=== PATIENT | male | born 1950 | race Caucasian/White ===

== ENCOUNTER → 2021-11-11 | Outpatient (CLI) | payer MEDICARE ==
[2021-11-11 12:55] LABS: CREATININE 1.1 mg/dL (0.5-1.5); POTASSIUM 4.5 mmol/L (3.5-5.1)
== END | disposition home or self-care (01) ==
LOC: LAB 10:37
PROVIDERS: ATTEND Internal Medicine Cardiovascular Disease
DX: E78.5 Hyperlipidemia, unspecified (principal)
CPT/HCPCS: 36415; 80048; 83880

== ENCOUNTER → 2022-06-20 | Outpatient (CLI) | payer MEDICARE | END | disposition home or self-care (01) | LOC: SHCH 13:50 | PROVIDERS: ATTEND Internal Medicine Cardiovascular Disease | DX: I87.2 Venous insufficiency (chronic) (peripheral) (principal); Z98.890 Other specified postprocedural states | CPT/HCPCS: 93971 ==

== ENCOUNTER → 2022-08-01 | Outpatient (CLI) | payer MEDICARE | END | disposition home or self-care (01) | LOC: SHCH 12:55 | PROVIDERS: ATTEND Internal Medicine Cardiovascular Disease | DX: I87.2 Venous insufficiency (chronic) (peripheral) (principal); Z98.890 Other specified postprocedural states | CPT/HCPCS: 93971 ==

== ENCOUNTER → 2022-08-08 | Outpatient (CLI) | payer MEDICARE | END | disposition home or self-care (01) | LOC: SHCH 08:15 | PROVIDERS: ATTEND Internal Medicine Cardiovascular Disease | DX: I87.2 Venous insufficiency (chronic) (peripheral) (principal); Z98.890 Other specified postprocedural states | CPT/HCPCS: 93971 ==

== ENCOUNTER → 2022-09-21 | Outpatient (CLI) | payer MEDICARE ==
[2022-09-21 12:35] LABS: BASOPHILS % (AUTO) 0.9 % (0.0-5.0); EOSINOPHILS % (AUTO) 2.2 % (0.0-8.0); HEMATOCRIT 32.2 % (42-54); LYMPHOCYTES % (AUTO) 21.8 % (21.0-51.0); MEAN CORPUSCULAR HEMOGLOBIN 20.6 pg (27.0-33.0); MEAN CORPUSCULAR HGB CONC 27.6 g/dL (32.0-36.0); MEAN CORPUSCULAR VOLUME 74.7 fL (79-99); MONOCYTES % (AUTO) 9.8 % (3.0-13.0); NEUTROPHILS % (AUTO) 64.3 % (40.0-77.0); PLATELET COUNT (AUTO) 297 K/uL (130-400); RED BLOOD CELL COUNT(AUTO) 4.31 MIL/uL (4.50-6.20); RED CELL DISTRIBUTION WIDTH 18.5 % (11.0-15.5); WHITE BLOOD COUNT (AUTO) 7.8 K/uL (4.8-10.8)
[2022-09-21 12:50] LABS: INR 0.94 (0.85-1.15); PROTHROMBIN TIME 10.3 SEC (9.6-11.6)
[2022-09-21 12:52] LABS: PARTIAL THROMBOPLASTIN TIME 24.3 SEC (26.3-35.5)
[2022-09-21 13:36] LABS: CREATININE 1.2 mg/dL (0.5-1.5); POTASSIUM 4.4 mmol/L (3.5-5.1)
== END | disposition home or self-care (01) ==
LOC: LAB 09:36
PROVIDERS: ATTEND Internal Medicine Cardiovascular Disease
DX: I87.1 Compression of vein (principal); Z86.2 Personal history of diseases of the blood and blood-forming organs and certain disorders involving the immune mechanism
CPT/HCPCS: 36415; 80048; 85025; 85610; 85730

== ENCOUNTER → 2022-11-08 | Outpatient (CLI) | payer MEDICARE ==
[~2022-11-08] MED LIST: ALBUHFA IH; ASPI-1197 PO; ATOR10 PO; CARV12.511 PO; CLOP75TA32 PO; FURO40TA5 PO; GABA300S3 PO; LISI1TAB53 PO; MECO10005 PO; METF-444 PO; PANT40TA54 PO; PRED20B PO; VITA1CAP PO
[2022-11-08 16:18] LABS: BASOPHILS % (AUTO) 0.9 % (0.0-5.0); EOSINOPHILS % (AUTO) 2.1 % (0.0-8.0); HEMATOCRIT 36.6 % (42-54); LYMPHOCYTES % (AUTO) 24.2 % (21.0-51.0); MEAN CORPUSCULAR HEMOGLOBIN 23.2 pg (27.0-33.0); MEAN CORPUSCULAR HGB CONC 27.9 g/dL (32.0-36.0); MEAN CORPUSCULAR VOLUME 83.4 fL (79-99); MONOCYTES % (AUTO) 10.6 % (3.0-13.0); NEUTROPHILS % (AUTO) 61.5 % (40.0-77.0); PLATELET COUNT (AUTO) 231 K/uL (130-400); RED BLOOD CELL COUNT(AUTO) 4.39 MIL/uL (4.50-6.20); WHITE BLOOD COUNT (AUTO) 5.7 K/uL (4.8-10.8)
[2022-11-08 16:51] LABS: ALBUMIN 3.6 g/dL (3.5-5.0); CREATININE 1.3 mg/dL (0.5-1.5); POTASSIUM 4.2 mmol/L (3.5-5.1); TOTAL PROTEIN, SERUM 7.2 g/dL (6.0-8.3)
== END | disposition home or self-care (01) ==
LOC: LAB 15:17
PROVIDERS: ATTEND Internal Medicine Cardiovascular Disease
DX: I87.1 Compression of vein (principal)
CPT/HCPCS: 36415; 80053; 83880; 85025

== ENCOUNTER 2023-01-11 10:40 | Inpatient (IN) | payer MEDICARE ==
[~2023-01-11] VITALS: Ht 182.9 cm; Wt 128.5 kg
[2023-01-11 11:34] LABS: EOSINOPHILS % (AUTO) 1.9 % (0.0-8.0); HEMATOCRIT 29.6 % (42-54); MEAN CORPUSCULAR HGB CONC 27.7 g/dL (32.0-36.0); MEAN CORPUSCULAR VOLUME 83.1 fL (79-99); MONOCYTES % (AUTO) 9.7 % (3.0-13.0); NEUTROPHILS % (AUTO) 71.6 % (40.0-77.0); NUCLEATED RED BLOOD CELLS 0.3 % (0.0-0.19); PLATELET COUNT (AUTO) 273 K/uL (130-400); RED BLOOD CELL COUNT(AUTO) 3.56 MIL/uL (4.50-6.20); RED CELL DISTRIBUTION WIDTH 18.4 % (11.0-15.5); WHITE BLOOD COUNT (AUTO) 7.3 K/uL (4.8-10.8)
[2023-01-11 11:43] LABS: CREATININE 1.3 mg/dL (0.5-1.5); POTASSIUM 4.2 mmol/L (3.5-5.1)
[2023-01-11] MEDS ORDERED: METOPROLOL TARTRATE 1 MG/ML 5ML VIAL IV ONE (11:44)
[2023-01-11 11:47] LABS: TOTAL PROTEIN, SERUM 7.2 g/dL (6.0-8.3)
[2023-01-11] MEDS ORDERED: FUROSEMIDE 40MG VIAL IV ONE (14:30)
[2023-01-11] MEDS ORDERED: IPRATROPIUM/ALBUTEROL SULFATE 3 ML SOLUTION IH ONE (14:30)
[2023-01-11] MEDS: MAGNESIUM 2GM PREMIX 50ML 50 ML IV SCH (14:35)
[2023-01-11] MEDS ORDERED: GABA-529 PO (14:53)
[2023-01-11] MEDS ORDERED: OMEP40CA21 PO (14:53)
[2023-01-11] MEDS ORDERED: NAPR-1084 PO (14:53)
[2023-01-11 15:17] LABS: ABG OXYGEN SATURATION 24.9 % (95.0-99.0); BASE EXCESS,VENOUS BLOOD GAS 4.2 (-2.0-3.0); HCO3,VENOUS BLOOD GAS 33.1 (21.0-28.0); PCO2,VENOUS BLOOD GAS 69 (35-48); PH,VENOUS BLOOD GAS 7.297 (7.350-7.450)
[2023-01-11 15:44] LABS: APPEARANCE,URINE CLEAR (CLEAR); BILIRUBIN,URINE NEGATIVE (NEGATIVE); COLOR,URINE YELLOW (YELLOW); GLUCOSE, URINE (UA) NEGATIVE (NEGATIVE); KETONES,URINE NEGATIVE (NEGATIVE); LEUKOCYTE ESTERASE ,URINE 75 Leu/uL (NEGATIVE); NITRATE,URINE 2+ (NEGATIVE); OCCULT BLOOD,URINE NEGATIVE (NEGATIVE); PH,URINE 6.5 (5.0-8.0); PROTEIN,URINE NEGATIVE (NEGATIVE); UROBILINOGEN,URINE 0.2 mg/dL (0.2-1.0)
[2023-01-11 15:52] LABS: BACTERIA,URINE FEW /HPF (None Seen); RBC,URINE 0-1 /HPF (0-1); YEAST,URINE BUDDING FEW /HPF (None Seen)
[2023-01-11] MEDS ORDERED: ONDANSETRON 4MG INJ IVP PRN (16:30)
[2023-01-11] MEDS: INSULIN HUMULIN R 100 UNIT/ML 3ML SQ SCH ×2 (16:30→21:28)
[2023-01-11] MEDS ORDERED: ACETAMINOPHEN 325 MG TAB PO PRN (16:30)
[2023-01-11] MEDS ORDERED: GLUCAGON 1MG KIT 1 MG ML IM PRN (16:30)
[2023-01-11] MEDS ORDERED: DEXTROSE 50%-WATER 50 ML DISP.SYRIN IV PRN (16:30)
[2023-01-11] MEDS: CEFTRIAXONE 1G VIAL IVPB SCH (16:33)
[2023-01-11] MEDS: IPRATROPIUM/ALBUTEROL SULFATE 3 ML SOLUTION IH SCH (19:10)
[2023-01-11] MEDS: DOXYCYCLINE HYCLATE 100 MG TABLET PO SCH (21:28)
[2023-01-11] MEDS: SOLU-MEDROL 40MG VIAL IVP SCH (21:28)
[2023-01-11] MEDS ORDERED: IOHEXOL-350 75 ML VIAL IV ONE ×2 (21:43→22:26)
[2023-01-11 22:45] VITALS: BP 134/83
[2023-01-12] MEDS: IPRATROPIUM/ALBUTEROL SULFATE 3 ML SOLUTION IH SCH ×5 (00:04→23:28)
[2023-01-12 04:00] VITALS: BP 140/67
[2023-01-12 04:37] LABS: BASOPHILS % (AUTO) 0.5 % (0.0-5.0); EOSINOPHILS % (AUTO) 0.2 % (0.0-8.0); HEMATOCRIT 29.3 % (42-54); MEAN CORPUSCULAR HEMOGLOBIN 23.1 pg (27.0-33.0); MEAN CORPUSCULAR HGB CONC 28.3 g/dL (32.0-36.0); MEAN CORPUSCULAR VOLUME 81.6 fL (79-99); MONOCYTES % (AUTO) 2.1 % (3.0-13.0); NUCLEATED RED BLOOD CELLS 0.2 % (0.0-0.19); PLATELET COUNT (AUTO) 284 K/uL (130-400); RED BLOOD CELL COUNT(AUTO) 3.59 MIL/uL (4.50-6.20); RED CELL DISTRIBUTION WIDTH 18.1 % (11.0-15.5); WHITE BLOOD COUNT (AUTO) 9.8 K/uL (4.8-10.8)
[2023-01-12 04:43] LABS: CREATININE 1.5 mg/dL (0.5-1.5); MAGNESIUM 1.7 mg/dL (1.80-2.40); POTASSIUM 4.7 mmol/L (3.5-5.1)
[2023-01-12 05:10] LABS: HEMOGLOBIN A1C 7.2 % (4.0-6.0)
[2023-01-12] MEDS: MAGNESIUM 2GM PREMIX 50ML 50 ML IV SCH (05:31)
[2023-01-12] MEDS ORDERED: ACETAMINOPHEN 325 MG TAB PO PRN (06:30)
[2023-01-12] MEDS: INSULIN HUMULIN R 100 UNIT/ML 3ML SQ SCH ×4 (06:33→20:35)
[2023-01-12 08:00] VITALS: BP 121/62
[2023-01-12] MEDS: DOXYCYCLINE HYCLATE 100 MG TABLET PO SCH ×2 (08:44→20:32)
[2023-01-12] MEDS: SOLU-MEDROL 40MG VIAL IVP SCH ×2 (08:45→20:32)
[2023-01-12] MEDS: ENOXAPARIN SODIUM 30 MG/0.3 ML SQ SCH (08:46)
[2023-01-12 11:37] VITALS: BP 137/62
[2023-01-12] MEDS ORDERED: TAMS-1 PO (14:07)
[2023-01-12] MEDS ORDERED: SODIUM CHLORIDE FOR INHALATION 3 ML VIAL.NEB. IH ONE (14:18)
[2023-01-12] MEDS ORDERED: NAPROXEN SODIUM 500 MG PO PRN (14:30)
[2023-01-12] MEDS ORDERED: ALBUTEROL INHALER 90MCG/INH IH SCH (14:30)
[2023-01-12 16:00] VITALS: BP 133/49
[2023-01-12] MEDS: CEFTRIAXONE 1G VIAL IVPB SCH (16:43)
[2023-01-12 19:57] VITALS: BP 127/56
[2023-01-12] MEDS: METFORMIN HCL 500 MG TABLET PO SCH (20:31)
[2023-01-12] MEDS: TAMSULOSIN HCL 0.4 MG CAP.ER.24H PO SCH (20:31)
[2023-01-12] MEDS: ATORVASTATIN 10 MG TABLET PO SCH (20:31)
[2023-01-12] MEDS: CARVEDILOL 12.5 MG TABLET PO SCH (20:32)
[2023-01-12] MEDS ORDERED: NAPROXEN 500 MG TABLET PO PRN (21:00)
[2023-01-13] VITALS (7 sets, daily range): BP systolic 116–151; BP diastolic 37–86
[2023-01-13 05:23] LABS: HEMATOCRIT 26.9 % (42-54); MEAN CORPUSCULAR HEMOGLOBIN 23.1 pg (27.0-33.0); MEAN CORPUSCULAR HGB CONC 27.9 g/dL (32.0-36.0); RED BLOOD CELL COUNT(AUTO) 3.24 MIL/uL (4.50-6.20); WHITE BLOOD COUNT (AUTO) 9.7 K/uL (4.8-10.8)
[2023-01-13 05:41] LABS: CREATININE 1.3 mg/dL (0.5-1.5); MAGNESIUM 1.8 mg/dL (1.80-2.40); POTASSIUM 5.3 mmol/L (3.5-5.1)
[2023-01-13] MEDS: PANTOPRAZOLE 40 MG TAB DR PO SCH (05:47)
[2023-01-13] MEDS: INSULIN HUMULIN R 100 UNIT/ML 3ML SQ SCH ×4 (05:47→20:06)
[2023-01-13] MEDS: MAGNESIUM 2GM PREMIX 50ML 50 ML IV SCH (05:47)
[2023-01-13] MEDS: IPRATROPIUM/ALBUTEROL SULFATE 3 ML SOLUTION IH SCH ×4 (07:01→23:39)
[2023-01-13] MEDS ORDERED: NON-FORMULARY MEDICATION 1 EACH (Omeprazole 40 MG) PO SCH (07:30)
[2023-01-13] MEDS ORDERED: FUROSEMIDE 40MG VIAL IV SCH (09:00)
[2023-01-13] MEDS: MECOBALAMIN PO SCH (09:00)
[2023-01-13] MEDS: HYDROCHLOROTHIAZIDE PO SCH (09:00)
[2023-01-13] MEDS: LISINOPRIL PO SCH (09:00)
[2023-01-13] MEDS ORDERED: FUROSEMIDE 40 MG TABLET PO SCH (09:00)
[2023-01-13] MEDS: GABAPENTIN 100 MG CAPSULE PO SCH (09:26)
[2023-01-13] MEDS: CARVEDILOL 12.5 MG TABLET PO SCH ×2 (09:27→20:10)
[2023-01-13] MEDS: DOXYCYCLINE HYCLATE 100 MG TABLET PO SCH ×2 (09:27→20:09)
[2023-01-13] MEDS: CLOPIDOGREL 75MG TAB PO SCH (09:27)
[2023-01-13] MEDS: VITAMIN B COMPLEX 1 CAPSULE PO SCH (09:27)
[2023-01-13] MEDS: ASPIRIN 81MG CHEW TAB PO SCH (09:28)
[2023-01-13] MEDS: SOLU-MEDROL 40MG VIAL IVP SCH ×2 (09:28→20:10)
[2023-01-13] MEDS: ENOXAPARIN SODIUM 30 MG/0.3 ML SQ SCH (09:29)
[2023-01-13] MEDS: METFORMIN HCL 500 MG TABLET PO SCH ×2 (09:31→20:09)
[2023-01-13] MEDS: CEFTRIAXONE 1G VIAL IVPB SCH (17:11)
[2023-01-13] MEDS: TAMSULOSIN HCL 0.4 MG CAP.ER.24H PO SCH (20:09)
[2023-01-13] MEDS: ATORVASTATIN 10 MG TABLET PO SCH (20:09)
[2023-01-14 04:16] VITALS: BP 131/57
[2023-01-14] MEDS: PANTOPRAZOLE 40 MG TAB DR PO SCH (06:11)
[2023-01-14] MEDS: INSULIN HUMULIN R 100 UNIT/ML 3ML SQ SCH ×4 (06:11→20:56)
[2023-01-14] MEDS: IPRATROPIUM/ALBUTEROL SULFATE 3 ML SOLUTION IH SCH ×4 (06:22→23:08)
[2023-01-14 08:00] VITALS: BP 130/68
[2023-01-14] MEDS: MECOBALAMIN PO SCH (09:00)
[2023-01-14] MEDS: DOXYCYCLINE HYCLATE 100 MG TABLET PO SCH ×2 (09:15→20:55)
[2023-01-14] MEDS: VITAMIN B COMPLEX 1 CAPSULE PO SCH (09:15)
[2023-01-14] MEDS: LISINOPRIL PO SCH (09:15)
[2023-01-14] MEDS: HYDROCHLOROTHIAZIDE PO SCH (09:15)
[2023-01-14] MEDS: METFORMIN HCL 500 MG TABLET PO SCH ×2 (09:16→20:56)
[2023-01-14] MEDS: GABAPENTIN 100 MG CAPSULE PO SCH (09:16)
[2023-01-14] MEDS: CLOPIDOGREL 75MG TAB PO SCH (09:17)
[2023-01-14] MEDS: CARVEDILOL 12.5 MG TABLET PO SCH ×2 (09:18→20:55)
[2023-01-14] MEDS: ENOXAPARIN SODIUM 30 MG/0.3 ML SQ SCH (09:18)
[2023-01-14] MEDS: ASPIRIN 81MG CHEW TAB PO SCH (09:19)
[2023-01-14] MEDS: SOLU-MEDROL 40MG VIAL IVP SCH ×2 (09:20→20:56)
[2023-01-14 12:00] VITALS: BP 126/58
[2023-01-14 16:00] VITALS: BP 131/69
[2023-01-14] MEDS: CEFTRIAXONE 1G VIAL IVPB SCH (16:50)
[2023-01-14 20:00] VITALS: BP 137/68
[2023-01-14] MEDS: ATORVASTATIN 10 MG TABLET PO SCH (20:56)
[2023-01-14] MEDS: TAMSULOSIN HCL 0.4 MG CAP.ER.24H PO SCH (20:56)
[2023-01-15] VITALS: BP 114/59
[2023-01-15 04:00] VITALS: BP 120/69
[2023-01-15 05:19] LABS: MEAN CORPUSCULAR HEMOGLOBIN 22.9 pg (27.0-33.0); MEAN CORPUSCULAR VOLUME 81.7 fL (79-99); NUCLEATED RED BLOOD CELLS 0.2 % (0.0-0.19); RED BLOOD CELL COUNT(AUTO) 3.67 MIL/uL (4.50-6.20); RED CELL DISTRIBUTION WIDTH 17.4 % (11.0-15.5); WHITE BLOOD COUNT (AUTO) 8.2 K/uL (4.8-10.8)
[2023-01-15 05:36] LABS: CREATININE 1.1 mg/dL (0.5-1.5); MAGNESIUM 1.7 mg/dL (1.80-2.40); POTASSIUM 4.8 mmol/L (3.5-5.1)
[2023-01-15] MEDS: IPRATROPIUM/ALBUTEROL SULFATE 3 ML SOLUTION IH SCH ×4 (06:08→23:43)
[2023-01-15] MEDS: PANTOPRAZOLE 40 MG TAB DR PO SCH ×2 (06:32→08:28)
[2023-01-15] MEDS: INSULIN HUMULIN R 100 UNIT/ML 3ML SQ SCH ×4 (06:33→20:25)
[2023-01-15 08:00] VITALS: BP 123/45
[2023-01-15] MEDS: GABAPENTIN 100 MG CAPSULE PO SCH (08:26)
[2023-01-15] MEDS: CLOPIDOGREL 75MG TAB PO SCH (08:27)
[2023-01-15] MEDS: DOXYCYCLINE HYCLATE 100 MG TABLET PO SCH ×2 (08:27→20:27)
[2023-01-15] MEDS: VITAMIN B COMPLEX 1 CAPSULE PO SCH (08:28)
[2023-01-15] MEDS: HYDROCHLOROTHIAZIDE PO SCH (08:28)
[2023-01-15] MEDS: METFORMIN HCL 500 MG TABLET PO SCH ×2 (08:28→20:27)
[2023-01-15] MEDS: LISINOPRIL PO SCH (08:28)
[2023-01-15] MEDS: CARVEDILOL 12.5 MG TABLET PO SCH ×2 (08:28→20:27)
[2023-01-15] MEDS: ASPIRIN 81MG CHEW TAB PO SCH (08:28)
[2023-01-15] MEDS: MECOBALAMIN PO SCH (08:29)
[2023-01-15] MEDS: ENOXAPARIN SODIUM 30 MG/0.3 ML SQ SCH (08:30)
[2023-01-15] MEDS: SOLU-MEDROL 40MG VIAL IVP SCH ×2 (08:32→20:26)
[2023-01-15] MEDS ORDERED: MAGNESIUM 2GM PREMIX 50ML 50 ML IV PRN (11:00)
[2023-01-15 12:00] VITALS: BP 120/48
[2023-01-15] MEDS: MAGNESIUM 2GM PREMIX 50ML 50 ML IV SCH (12:29)
[2023-01-15 16:00] VITALS: BP 116/42
[2023-01-15] MEDS: CEFTRIAXONE 1G VIAL IVPB SCH (16:49)
[2023-01-15 19:52] VITALS: BP 142/58
[2023-01-15] MEDS: TAMSULOSIN HCL 0.4 MG CAP.ER.24H PO SCH (20:27)
[2023-01-15] MEDS: ATORVASTATIN 10 MG TABLET PO SCH (20:27)
[2023-01-16] VITALS (7 sets, daily range): BP systolic 114–144; BP diastolic 50–76
[2023-01-16] MEDS: INSULIN HUMULIN R 100 UNIT/ML 3ML SQ SCH ×4 (06:16→21:09)
[2023-01-16] MEDS: IPRATROPIUM/ALBUTEROL SULFATE 3 ML SOLUTION IH SCH ×4 (06:49→23:18)
[2023-01-16] MEDS: DOXYCYCLINE HYCLATE 100 MG TABLET PO SCH ×2 (08:29→21:09)
[2023-01-16] MEDS: CLOPIDOGREL 75MG TAB PO SCH (08:30)
[2023-01-16] MEDS: GABAPENTIN 100 MG CAPSULE PO SCH (08:30)
[2023-01-16] MEDS: CARVEDILOL 12.5 MG TABLET PO SCH ×2 (08:31→21:10)
[2023-01-16] MEDS: SOLU-MEDROL 40MG VIAL IVP SCH ×2 (08:31→21:10)
[2023-01-16] MEDS: VITAMIN B COMPLEX 1 CAPSULE PO SCH (08:31)
[2023-01-16] MEDS: ASPIRIN 81MG CHEW TAB PO SCH (08:31)
[2023-01-16] MEDS: METFORMIN HCL 500 MG TABLET PO SCH ×2 (08:31→21:09)
[2023-01-16] MEDS: ENOXAPARIN SODIUM 30 MG/0.3 ML SQ SCH (08:32)
[2023-01-16] MEDS: HYDROCHLOROTHIAZIDE PO SCH (08:39)
[2023-01-16] MEDS: LISINOPRIL PO SCH (08:39)
[2023-01-16] MEDS: MECOBALAMIN PO SCH (08:39)
[2023-01-16] MEDS: CEFTRIAXONE 1G VIAL IVPB SCH (17:07)
[2023-01-16] MEDS: ATORVASTATIN 10 MG TABLET PO SCH (21:09)
[2023-01-16] MEDS: TAMSULOSIN HCL 0.4 MG CAP.ER.24H PO SCH (21:09)
[2023-01-17 04:32] VITALS: BP 120/60
[2023-01-17 05:30] LABS: HEMATOCRIT 29.5 % (42-54); MEAN CORPUSCULAR HEMOGLOBIN 22.9 pg (27.0-33.0); MEAN CORPUSCULAR HGB CONC 28.1 g/dL (32.0-36.0); MEAN CORPUSCULAR VOLUME 81.5 fL (79-99); NUCLEATED RED BLOOD CELLS 0.4 % (0.0-0.19); RED BLOOD CELL COUNT(AUTO) 3.62 MIL/uL (4.50-6.20); RED CELL DISTRIBUTION WIDTH 16.9 % (11.0-15.5); WHITE BLOOD COUNT (AUTO) 8.5 K/uL (4.8-10.8)
[2023-01-17 05:49] LABS: CREATININE 1.1 mg/dL (0.5-1.5); MAGNESIUM 1.6 mg/dL (1.80-2.40); POTASSIUM 4.5 mmol/L (3.5-5.1)
[2023-01-17] MEDS: MAGNESIUM 2GM PREMIX 50ML 50 ML IV SCH (06:29)
[2023-01-17] MEDS: INSULIN HUMULIN R 100 UNIT/ML 3ML SQ SCH (06:32)
[2023-01-17] MEDS: IPRATROPIUM/ALBUTEROL SULFATE 3 ML SOLUTION IH SCH ×2 (07:16→11:10)
[2023-01-17] MEDS: VITAMIN B COMPLEX 1 CAPSULE PO SCH (07:48)
[2023-01-17] MEDS: CLOPIDOGREL 75MG TAB PO SCH (07:48)
[2023-01-17] MEDS: SOLU-MEDROL 40MG VIAL IVP SCH (07:48)
[2023-01-17] MEDS: DOXYCYCLINE HYCLATE 100 MG TABLET PO SCH (07:48)
[2023-01-17] MEDS: METFORMIN HCL 500 MG TABLET PO SCH (07:48)
[2023-01-17] MEDS: GABAPENTIN 100 MG CAPSULE PO SCH (07:48)
[2023-01-17] MEDS: ASPIRIN 81MG CHEW TAB PO SCH (07:49)
[2023-01-17] MEDS: CARVEDILOL 12.5 MG TABLET PO SCH (07:49)
[2023-01-17] MEDS: PANTOPRAZOLE 40 MG TAB DR PO SCH (07:49)
[2023-01-17] MEDS: HYDROCHLOROTHIAZIDE PO SCH (07:50)
[2023-01-17] MEDS: LISINOPRIL PO SCH (07:50)
[2023-01-17] MEDS: MECOBALAMIN PO SCH (07:50)
[2023-01-17] MEDS: ENOXAPARIN SODIUM 30 MG/0.3 ML SQ SCH (07:51)
[2023-01-17 08:01] VITALS: BP 110/48
[2023-01-17] MEDS ORDERED: PREDNISONE 20 MG TABLET PO SCH (09:00)
[2023-01-17 11:40] VITALS: BP 118/67
== END 2023-01-17 12:25 | disposition home or self-care (01) | DRG 177 ==
LOC: EDH 10:40 → EDHIP 16:29 → OBSVTOIN 16:29 → 4AH 22:11
PROVIDERS: ADMIT Internal Medicine Infectious Disease; ATTEND Internal Medicine Infectious Disease
PROC: 5A09357 Assistance with Respiratory Ventilation, Less than 24 Consecutive Hours, Continuous Positive Airway Pressure (ICD-10-PCS; principal; 2023-01-15)
DX: J15.6 Pneumonia due to other Gram-negative bacteria (principal); J96.21 Acute and chronic respiratory failure with hypoxia; J96.22 Acute and chronic respiratory failure with hypercapnia; J44.1 Chronic obstructive pulmonary disease with (acute) exacerbation; J44.0 Chronic obstructive pulmonary disease with (acute) lower respiratory infection; N39.0 Urinary tract infection, site not specified; I11.0 Hypertensive heart disease with heart failure; I50.9 Heart failure, unspecified; E11.51 Type 2 diabetes mellitus with diabetic peripheral angiopathy without gangrene; E78.5 Hyperlipidemia, unspecified; E66.01 Morbid (severe) obesity due to excess calories; D64.9 Anemia, unspecified; E78.00 Pure hypercholesterolemia, unspecified; I87.2 Venous insufficiency (chronic) (peripheral); I25.10 Atherosclerotic heart disease of native coronary artery without angina pectoris; G47.33 Obstructive sleep apnea (adult) (pediatric); Z95.5 Presence of coronary angioplasty implant and graft; Z87.891 Personal history of nicotine dependence; Z83.3 Family history of diabetes mellitus; Z68.38 Body mass index [BMI] 38.0-38.9, adult
CPT/HCPCS: 36415; 36600; 71045; 71275; 80048; 80053; 81001; 82803; 82948; 83036; 83735; 83880; 84484; 85025; 85027; 85378; 87071; 87077; 87088; 87186; 87205; 93005; 93306; 93970; 94640; 94660; 94664; 94760; G0378; J0696; J1650; J1815; J1940; J2920; J3475; J3490; Q9967

== ENCOUNTER 2023-04-29 21:15 | Inpatient (IN) | payer MEDICARE ==
[~2023-04-29] VITALS: Ht 182.9 cm; Wt 129.7 kg
[~2023-04-29 21:15] MED LIST changes: -CARV12.511 PO; -CLOP75TA32 PO; +DILT120T15 PO; +GABA-529 PO; -GABA300S3 PO; -LISI1TAB53 PO; +NAPR-1084 PO; +OMEP40CA21 PO; -PANT40TA54 PO; -PRED20B PO; +TAMS-1 PO
[2023-04-29 22:27] LABS: BASOPHILS # (AUTO) 0.06 K/uL (0.00-0.20); BASOPHILS % (AUTO) 0.6 % (0.0-5.0); EOSINOPHILS # (AUTO) 0.16 K/uL (0.00-0.70); EOSINOPHILS % (AUTO) 1.6 % (0.0-8.0); HEMATOCRIT 38.6 % (42-54); IMMATURE GRANULOCYTE ABSOLUTE 0.08 K/uL (0-1); LYMPHOCYTES # (AUTO) 1.8 K/uL (1.0-4.8); MEAN CORPUSCULAR HGB CONC 31.3 g/dL (32.0-36.0); MEAN CORPUSCULAR VOLUME 86.2 fL (79-99); MONOCYTES # (AUTO) 0.8 K/uL (0.1-1.0); MONOCYTES % (AUTO) 8.7 % (3.0-13.0); NEUTROPHILS # (AUTO) 6.7 K/uL (1.8-7.7); NEUTROPHILS % (AUTO) 69.3 % (40.0-77.0); PLATELET COUNT (AUTO) 228 K/uL (130-400); RED BLOOD CELL COUNT(AUTO) 4.48 MIL/uL (4.50-6.20); RED CELL DISTRIBUTION WIDTH 18.1 % (11.0-15.5); WHITE BLOOD COUNT (AUTO) 9.7 K/uL (4.8-10.8)
[2023-04-29] MEDS ORDERED: AZITHROMYCIN 500MG+NS 250ML 250 ML IV ONE (22:30)
[2023-04-29] MEDS ORDERED: CEFTRIAXONE 1G VIAL 2 GM in 0.9%NACL 100ML 100 ML IV ONE (22:30)
[2023-04-29 22:38] LABS: INR < 0.93 (0.85-1.15); PROTHROMBIN TIME 10.6 SEC (9.6-11.6)
[2023-04-29 22:39] LABS: PARTIAL THROMBOPLASTIN TIME 27.6 SEC (26.3-35.5)
[2023-04-29 22:45] LABS: CREATININE 1.2 mg/dL (0.5-1.5); POTASSIUM 3.9 mmol/L (3.5-5.1)
[2023-04-29 22:49] LABS: ALBUMIN 3.3 g/dL (3.5-5.0); BILIRUBIN,TOTAL 0.3 mg/dL (0.2-1.0); TOTAL PROTEIN, SERUM 7.4 g/dL (6.0-8.3)
[2023-04-29 22:59] LABS: ABG BASE EXCESS 3.7 mmol/L (-2.0-3.0); ABG HCO3 28.9 mmol/L (21.0-28.0); ABG OXYGEN SATURATION 89.1 % (95.0-99.0); ABG PCO2 45 mmHg (35-48); ABG PH 7.422 (7.35-7.450); VENT MODE, BG ROOMAIR (ROOM AIR)
[2023-04-29] MEDS ORDERED: IOHEXOL-350 50ML VIAL IV ONE (23:06)
[2023-04-29 23:09] LABS: APPEARANCE,URINE CLEAR (CLEAR); BILIRUBIN,URINE NEGATIVE (NEGATIVE); COLOR,URINE YELLOW (YELLOW); GLUCOSE, URINE (UA) 300 mg/dL (NEGATIVE); KETONES,URINE NEGATIVE (NEGATIVE); LEUKOCYTE ESTERASE ,URINE NEGATIVE Leu/uL (NEGATIVE); NITRATE,URINE NEGATIVE (NEGATIVE); OCCULT BLOOD,URINE NEGATIVE (NEGATIVE); PROTEIN,URINE 50 mg/dL (NEGATIVE)
[2023-04-29 23:15] LABS: ADD UA MICROSCOPIC YES
[2023-04-29 23:16] LABS: MUCUS,URINE RARE LPF (None Seen); RBC,URINE 0-1 /HPF (0-1); SQUAMOUS EPITHELIAL CELL,UR RARE /HPF (0-2)
[2023-04-30] VITALS (9 sets, daily range): BP systolic 111–147; BP diastolic 63–82; PULSE 79–89; RESP 18–22; O2SAT 95–98
[2023-04-30] MEDS ORDERED: DEXTROSE 50%-WATER 50 ML DISP.SYRIN IV PRN
[2023-04-30] MEDS ORDERED: ONDANSETRON 4MG INJ IV PRN
[2023-04-30] MEDS ORDERED: ACETAMINOPHEN 325 MG TAB PO PRN ×2
[2023-04-30] MEDS ORDERED: GLUCAGON 1MG KIT 1 MG ML IM PRN
[2023-04-30] MEDS ORDERED: 0.9% NACL 500ML IV.SOLN 500 ML IV SCH (00:30)
[2023-04-30] MEDS: CEFTRIAXONE 1G VIAL IVPB SCH (00:45)
[2023-04-30] MEDS: 0.9%NACL 1000ML 1,000 ML IV SCH ×2 (00:47→19:52)
[2023-04-30 06:14] LABS: BASOPHILS # (AUTO) 0.05 K/uL (0.00-0.20); BASOPHILS % (AUTO) 0.6 % (0.0-5.0); EOSINOPHILS # (AUTO) 0.16 K/uL (0.00-0.70); EOSINOPHILS % (AUTO) 1.8 % (0.0-8.0); HEMATOCRIT 37.6 % (42-54); IMMATURE GRANULOCYTE ABSOLUTE 0.07 K/uL (0-1); LYMPHOCYTES # (AUTO) 1.9 K/uL (1.0-4.8); LYMPHOCYTES % (AUTO) 20.8 % (21.0-51.0); MEAN CORPUSCULAR HEMOGLOBIN 26.4 pg (27.0-33.0); MEAN CORPUSCULAR HGB CONC 30.6 g/dL (32.0-36.0); MEAN CORPUSCULAR VOLUME 86.4 fL (79-99); MONOCYTES # (AUTO) 0.8 K/uL (0.1-1.0); PLATELET COUNT (AUTO) 194 K/uL (130-400); RED BLOOD CELL COUNT(AUTO) 4.35 MIL/uL (4.50-6.20); RED CELL DISTRIBUTION WIDTH 18.3 % (11.0-15.5); WHITE BLOOD COUNT (AUTO) 8.9 K/uL (4.8-10.8)
[2023-04-30 06:28] LABS: ALBUMIN 3.2 g/dL (3.5-5.0); BILIRUBIN,TOTAL 0.4 mg/dL (0.2-1.0); CREATININE 1.1 mg/dL (0.5-1.5); MAGNESIUM 1.5 mg/dL (1.80-2.40); POTASSIUM 3.6 mmol/L (3.5-5.1); TOTAL PROTEIN, SERUM 7.2 g/dL (6.0-8.3)
[2023-04-30] MEDS: MAGNESIUM 2GM PREMIX 50ML 50 ML IV PRN (07:09)
[2023-04-30] MEDS: INSULIN HUMULIN R 100 UNIT/ML 3ML SQ SCH ×6 (08:22→21:09)
[2023-04-30] MEDS ORDERED: FAMOTIDINE 20MG TAB PO SCH (09:00)
[2023-04-30] MEDS ORDERED: POTASSIUM CHLORIDE 10% ELIXIR 20 MEQ/15 ML UDCUP PO PRN (10:00)
[2023-04-30] MEDS ORDERED: POTASSIUM CHLORIDE 20MEQ/100ML 100 ML IV PRN ×2 (10:00)
[2023-04-30 10:25] LABS: HEMOGLOBIN A1C 6.5 % (4.0-6.0)
[2023-04-30 11:13] LABS: RAPID GROUP A STREP negative (NEGATIVE); SARS-CoV-2, RNA, NAAT NEGATIVE SARS CoV-2 (NEGATIVE)
[2023-04-30 11:23] LABS: INFLUENZA TYPE A Negative For Type A (NEGATIVE); INFLUENZA TYPE B Negative For Type B (NEGATIVE)
[2023-04-30] MEDS ORDERED: LEVO750P7 PO (11:47)
[2023-04-30] MEDS ORDERED: AMOX1TAB16 PO (11:47)
[2023-04-30] MEDS ORDERED: (Albuterol Sulfate (Ventolin Hfa/Proventil Hfa/Proair Hfa) IH SCH (12:30)
[2023-04-30] MEDS ORDERED: PHARMACY COMMUNICATION MISC SCH (13:00)
[2023-04-30] MEDS: KCL 20 MEQ ERTAB PO PRN ×2 (14:14→17:42)
[2023-04-30] MEDS: DILTIAZEM 120MG SR CAP PO SCH (14:38)
[2023-04-30] MEDS: PANTOPRAZOLE 40 MG/VIAL IVP SCH (19:46)
[2023-04-30] MEDS: ATORVASTATIN 10 MG TABLET PO SCH (19:46)
[2023-04-30] MEDS: TAMSULOSIN HCL 0.4 MG CAP.ER.24H PO SCH (19:46)
[2023-04-30] MEDS: GABAPENTIN 300 MG CAPSULE PO SCH (19:46)
[2023-04-30 19:54] LABS: MAGNESIUM 1.7 mg/dL (1.80-2.40); POTASSIUM 4.3 mmol/L (3.5-5.1)
[2023-04-30] MEDS ORDERED: AMOX/CLAV 875/125MG TAB PO SCH (21:00)
[2023-04-30] MEDS: INSULIN GLARGINE 100 UNITS/ML 10 ML VIAL SQ SCH (21:10)
[2023-04-30] MEDS: AZITHROMYCIN 500MG+NS 250ML 250 ML IVPB SCH ×2 (22:56)
[2023-04-30] MEDS: IPRATROPIUM 0.5 MG/2.5 ML INH IH SCH (23:39)
[2023-05-01] VITALS (10 sets, daily range): BP systolic 122–152; BP diastolic 57–84; PULSE 74–86; RESP 16–22; O2SAT 95–98
[2023-05-01] MEDS: CEFTRIAXONE 1G VIAL IVPB SCH (00:16)
[2023-05-01 05:09] LABS: BASOPHILS # (AUTO) 0.04 K/uL (0.00-0.20); BASOPHILS % (AUTO) 0.6 % (0.0-5.0); EOSINOPHILS # (AUTO) 0.19 K/uL (0.00-0.70); EOSINOPHILS % (AUTO) 2.7 % (0.0-8.0); IMMATURE GRANULOCYTE ABSOLUTE 0.08 K/uL (0-1); LYMPHOCYTES # (AUTO) 1.5 K/uL (1.0-4.8); MEAN CORPUSCULAR HEMOGLOBIN 26.6 pg (27.0-33.0); MEAN CORPUSCULAR HGB CONC 30.3 g/dL (32.0-36.0); MEAN CORPUSCULAR VOLUME 87.9 fL (79-99); MONOCYTES # (AUTO) 0.6 K/uL (0.1-1.0); MONOCYTES % (AUTO) 8.7 % (3.0-13.0); NEUTROPHILS # (AUTO) 4.7 K/uL (1.8-7.7); NEUTROPHILS % (AUTO) 65.9 % (40.0-77.0); PLATELET COUNT (AUTO) 205 K/uL (130-400); RED BLOOD CELL COUNT(AUTO) 3.98 MIL/uL (4.50-6.20); RED CELL DISTRIBUTION WIDTH 17.8 % (11.0-15.5); WHITE BLOOD COUNT (AUTO) 7.2 K/uL (4.8-10.8)
[2023-05-01 05:45] LABS: ALBUMIN 2.8 g/dL (3.5-5.0); BILIRUBIN,TOTAL 0.3 mg/dL (0.2-1.0); CREATININE 0.9 mg/dL (0.5-1.5); MAGNESIUM 1.7 mg/dL (1.80-2.40); TOTAL PROTEIN, SERUM 6.4 g/dL (6.0-8.3)
[2023-05-01] MEDS: MAGNESIUM 2GM PREMIX 50ML 50 ML IV PRN (06:26)
[2023-05-01] MEDS: INSULIN HUMULIN R 100 UNIT/ML 3ML SQ SCH ×8 (06:31→20:48)
[2023-05-01] MEDS: IPRATROPIUM 0.5 MG/2.5 ML INH IH SCH ×4 (06:41→23:16)
[2023-05-01] MEDS: PANTOPRAZOLE 40 MG/VIAL IVP SCH ×2 (08:35→20:37)
[2023-05-01] MEDS: VITAMIN B COMPLEX 1 CAPSULE PO SCH (08:35)
[2023-05-01] MEDS: DILTIAZEM 120MG SR CAP PO SCH (08:36)
[2023-05-01] MEDS: FUROSEMIDE 40 MG TABLET PO SCH (08:36)
[2023-05-01] MEDS: LEVOFLOXACIN 750 MG/D5W 150 ML 150 ML IV SCH (08:36)
[2023-05-01] MEDS: MECOBALAMIN PO SCH (08:38)
[2023-05-01] MEDS ORDERED: DILTIAZEM 120MG SR CAP PO SCH (09:00)
[2023-05-01] MEDS ORDERED: DILTIAZEM HCL 240 MG PO SCH (09:00)
[2023-05-01] MEDS ORDERED: LEVOFLOXACIN 750 MG TABLET PO SCH (09:00)
[2023-05-01] MEDS: 0.9%NACL 1000ML 1,000 ML IV SCH (15:54)
[2023-05-01] MEDS: TAMSULOSIN HCL 0.4 MG CAP.ER.24H PO SCH (20:33)
[2023-05-01] MEDS: ATORVASTATIN 10 MG TABLET PO SCH (20:34)
[2023-05-01] MEDS: GABAPENTIN 300 MG CAPSULE PO SCH (20:34)
[2023-05-01] MEDS: INSULIN GLARGINE 100 UNITS/ML 10 ML VIAL SQ SCH (20:49)
[2023-05-02] VITALS: BP 142/64; PULSE 73; RESP 20
[2023-05-02] MEDS: AZITHROMYCIN 500MG+NS 250ML 250 ML IVPB SCH (00:26)
[2023-05-02] MEDS: CEFTRIAXONE 1G VIAL IVPB SCH (00:26)
[2023-05-02 04:00] VITALS: BP 132/65; PULSE 75; RESP 20
[2023-05-02 06:09] LABS: BASOPHILS # (AUTO) 0.04 K/uL (0.00-0.20); BASOPHILS % (AUTO) 0.6 % (0.0-5.0); EOSINOPHILS # (AUTO) 0.19 K/uL (0.00-0.70); EOSINOPHILS % (AUTO) 2.7 % (0.0-8.0); HEMATOCRIT 36.8 % (42-54); IMMATURE GRANULOCYTE ABSOLUTE 0.05 K/uL (0-1); LYMPHOCYTES # (AUTO) 1.7 K/uL (1.0-4.8); LYMPHOCYTES % (AUTO) 23.3 % (21.0-51.0); MEAN CORPUSCULAR HEMOGLOBIN 26.3 pg (27.0-33.0); MEAN CORPUSCULAR HGB CONC 29.9 g/dL (32.0-36.0); MEAN CORPUSCULAR VOLUME 87.8 fL (79-99); MONOCYTES # (AUTO) 0.6 K/uL (0.1-1.0); MONOCYTES % (AUTO) 7.8 % (3.0-13.0); NEUTROPHILS # (AUTO) 4.6 K/uL (1.8-7.7); NEUTROPHILS % (AUTO) 64.9 % (40.0-77.0); PLATELET COUNT (AUTO) 204 K/uL (130-400); RED BLOOD CELL COUNT(AUTO) 4.19 MIL/uL (4.50-6.20); RED CELL DISTRIBUTION WIDTH 17.7 % (11.0-15.5); WHITE BLOOD COUNT (AUTO) 7.1 K/uL (4.8-10.8)
[2023-05-02] MEDS: IPRATROPIUM 0.5 MG/2.5 ML INH IH SCH ×2 (06:10→11:19)
[2023-05-02 06:13] VITALS: PULSE 73; RESP 20; O2SAT 98
[2023-05-02] MEDS: INSULIN HUMULIN R 100 UNIT/ML 3ML SQ SCH ×4 (06:22→12:04)
[2023-05-02 06:31] LABS: ALBUMIN 2.9 g/dL (3.5-5.0); BILIRUBIN,TOTAL 0.3 mg/dL (0.2-1.0); CREATININE 1.1 mg/dL (0.5-1.5); POTASSIUM 3.6 mmol/L (3.5-5.1); TOTAL PROTEIN, SERUM 6.6 g/dL (6.0-8.3)
[2023-05-02 08:00] VITALS: BP 138/75; PULSE 73; RESP 20; O2SAT 96
[2023-05-02] MEDS: DILTIAZEM 120MG SR CAP PO SCH (08:38)
[2023-05-02] MEDS: PANTOPRAZOLE 40 MG/VIAL IVP SCH (08:39)
[2023-05-02] MEDS: VITAMIN B COMPLEX 1 CAPSULE PO SCH (08:39)
[2023-05-02] MEDS: LEVOFLOXACIN 750 MG/D5W 150 ML 150 ML IV SCH (08:39)
[2023-05-02] MEDS: FUROSEMIDE 40 MG TABLET PO SCH (08:39)
[2023-05-02] MEDS: MECOBALAMIN PO SCH (08:40)
[2023-05-02 11:20] VITALS: PULSE 78; RESP 20
[2023-05-02 11:46] VITALS: BP 143/72; PULSE 83; RESP 20
[2023-05-02] MEDS: 0.9%NACL 1000ML 1,000 ML IV SCH (12:00)
[2023-05-02] MEDS ORDERED: ALBUHFA IH (12:20)
== END 2023-05-02 13:55 | disposition home or self-care (01) | DRG 180 ==
LOC: EDH 21:15 → EDHIP 23:58 → 3DH 04-30 09:30
PROVIDERS: ADMIT Hospitalist; ATTEND Hospitalist
DX: C34.92 Malignant neoplasm of unspecified part of left bronchus or lung (principal); I50.33 Acute on chronic diastolic (congestive) heart failure; J18.9 Pneumonia, unspecified organism; J96.21 Acute and chronic respiratory failure with hypoxia; J44.1 Chronic obstructive pulmonary disease with (acute) exacerbation; J44.0 Chronic obstructive pulmonary disease with (acute) lower respiratory infection; E87.1 Hypo-osmolality and hyponatremia; Z68.43 Body mass index [BMI] 50.0-59.9, adult; I48.20 Chronic atrial fibrillation, unspecified; E86.0 Dehydration; R04.0 Epistaxis; Z20.822 Contact with and (suspected) exposure to COVID-19; I11.0 Hypertensive heart disease with heart failure; D64.9 Anemia, unspecified; E11.51 Type 2 diabetes mellitus with diabetic peripheral angiopathy without gangrene; C34.02 Malignant neoplasm of left main bronchus; E66.01 Morbid (severe) obesity due to excess calories; E78.5 Hyperlipidemia, unspecified; I25.10 Atherosclerotic heart disease of native coronary artery without angina pectoris; Z83.3 Family history of diabetes mellitus; Z99.81 Dependence on supplemental oxygen; Z85.118 Personal history of other malignant neoplasm of bronchus and lung; Z87.891 Personal history of nicotine dependence; Z95.5 Presence of coronary angioplasty implant and graft
CPT/HCPCS: 36415; 36600; 71270; 80053; 81001; 82550; 82803; 82948; 83036; 83605; 83735; 83880; 84132; 84145; 84484; 85025; 85610; 85651; 85730; 86140; 86850; 86900; 86901; 87040; 87071; 87088; 87205; 87635; 87804; 87880; 94640; 94664; 99291; C9113; G0378; J0456; J0696; J1815; J1956; J3475; J7030; Q9967

== ENCOUNTER → 2023-06-13 | Outpatient (CLI) | payer MEDICARE ==
[~2023-06-13] MED LIST changes: +AMOX1TAB16 PO; +LEVO750P7 PO; -NAPR-1084 PO
== END | disposition home or self-care (01) ==
LOC: RAH 12:29
PROVIDERS: ATTEND Otolaryngology Plastic Surgery within the Head & Neck
DX: R22.1 Localized swelling, mass and lump, neck (principal)
CPT/HCPCS: 76536

== ENCOUNTER → 2023-09-26 | Outpatient (CLI) | payer MEDICARE ==
[2023-09-26 12:37] LABS: ALBUMIN 3.1 g/dL (3.5-5.0); BILIRUBIN,TOTAL 0.6 mg/dL (0.2-1.0); CREATININE 1.1 mg/dL (0.5-1.3); MAGNESIUM 1.6 mg/dL (1.80-2.40); PHOSPHORUS 4.2 mg/dL (2.5-4.9); POTASSIUM 3.6 mmol/L (3.5-5.1); TOTAL PROTEIN, SERUM 7.8 g/dL (6.0-8.3); URIC ACID 7.2 mg/dL (2.6-7.2)
== END | disposition home or self-care (01) ==
LOC: LAB 11:12
PROVIDERS: ATTEND Internal Medicine Cardiovascular Disease
DX: I87.1 Compression of vein (principal); I25.10 Atherosclerotic heart disease of native coronary artery without angina pectoris; I50.31 Acute diastolic (congestive) heart failure
CPT/HCPCS: 36415; 80053; 83735; 83880; 84100; 84550; 85651; 86141

== ENCOUNTER → 2023-10-12 | Outpatient (CLI) | payer MEDICARE ==
[~2023-10-12] MED LIST changes: +AEC81 PO; -ALBUHFA IH; -AMOX1TAB16 PO; -ASPI-1197 PO; -DILT120T15 PO; +FERR324T23 PO; -FURO40TA5 PO; -LEVO750P7 PO; +MAGN400C PO; -MECO10005 PO; -OMEP40CA21 PO; +POTA-202 PO; +VERA120T20 PO; -VITA1CAP PO
[2023-10-12 13:12] LABS: BILIRUBIN,TOTAL 0.4 mg/dL (0.2-1.0); MAGNESIUM 1.9 mg/dL (1.80-2.40); POTASSIUM 4.1 mmol/L (3.5-5.1)
[2023-10-12 13:13] LABS: ALBUMIN 3.3 g/dL (3.5-5.0); TOTAL PROTEIN, SERUM 7.7 g/dL (6.0-8.3)
== END | disposition home or self-care (01) ==
LOC: LAB 08:38
PROVIDERS: ATTEND Internal Medicine Cardiovascular Disease
DX: I48.0 Paroxysmal atrial fibrillation (principal)
CPT/HCPCS: 36415; 80053; 83735; 83880